=== PATIENT | female | born 1955 | race Caucasian/White ===

== ENCOUNTER 2024-12-20 00:12 | Inpatient (IN) | payer MEDICARE, MEDICAID ==
[~2024-12-20] VITALS: Ht 157.5 cm; Wt 67.0 kg
--- NOTE | 2024-12-20 04:58 | ED.PDOC ---
History of Present Illness HPI Comments 69 y/o obese F, with a history of DM, HLD, HTN, and GERD, is BIBA for c/o HTN, palpitations, dizziness, nausea, and vomiting, today. Per EMS reports, patient is stated to have been found hypertensive after, initially, calling for recent onset other aforementioned symptoms within the past few days. Patient states on recent metformin placement and cessation of her usual HTN medications for lisinopril following another ED visit at another facility 2-3 days ago. She denies any chest or abdominal pain, shortness of breath, vision or speech changes, headache, or other associated symptoms or modifiers at this time. Chief Complaint: Nausea/Vomiting Time Seen by MD: 01:10 Reviewed Notes: Nurses Notes, Administrative Supervisor Notes, Medications, Allergies Allergies: Coded Allergies: NO KNOWN ALLERGIES (Unverified , 12/20/24) Home Meds Active Scripts Lisinopril (Lisinopril) 10 Mg Tab, 20 MG PO DAILY for 30 Days, #30 TAB 0 Refills Prov:LATA SANCHEZ MD 12/23/24 Reported Medications Hydroxyzine Hcl (Hydroxyzine Hcl) 25 Mg Tab, 1 TAB PO HS, #30 TAB 12/20/24 Omeprazole (Omeprazole Dr) 20 Mg Cap, 20 MG PO DAILY, CAP 12/20/24 Metformin Hydrochloride (Metformin Hcl) 500 Mg Tab, 1 TAB PO BID, #60 TAB 3 Refills 12/20/24 Information Source: Patient, Emergency Med Personnel Mode of Arrival: EMS Severity: Moderate Timing: Days Duration: Since onset Prehospital treatment: 12 Lead EKG, Accucheck, Dietitian Chief Past Medical History PAST MEDICAL HISTORY: DM, GERD, High Lipids, HTN Past Medical History (Other): obesity Surgical History: Denies all surgeries VALVE SEATER OPERATOR History: Denies all VALVE SEATER OPERATOR Hx Family History Family History: Unknown Social History Smoker: Non-Smoker Alcohol: Denies ETOH Use Drugs: Denies Drug Use Lives In: Home All Other Systems: Reviewed and Negative (Comprehensive systems review obtained and negative except for what is stated in the HPI.) Physical Exam General Appearance: No Apparent Distress, Obese HEENT: Normal ENT Inspection, Pharynx Normal, TMs Normal Neck: Full Range of Motion, Non-Tender, Normal, Normal Inspection Respiratory: Chest Non-Tender, Lungs Clear, No Accessory Muscle Use, No Respiratory Distress, Normal Breath Sounds Cardiovascular: No Edema, No JVD, No Murmur, No Gallop, Normal Peripheral Pulses, Regular Rate/Rhythm Breast Exam: Deferred Gastrointestinal: No Organomegaly, Non Tender, No Pulsatile Mass, Normal Bowel Sounds, Soft Genitalia: Deferred Pelvic: Deferred Rectal: Deferred Extremities: No calf tenderness, Normal capillary refill, Normal inspection, Normal range of motion, Non-tender, No pedal edema Musculoskeletal : Apperance: Normal Neurologic: Alert, bag maker II-XII nml as Tested, No Motor Deficits, Normal Affect, Normal Mood, No Sensory Deficits Cerebellar Function: Normal Reflexes: Normal Skin: Dry, Normal Color, Warm Lymphatic: No Adenopathy Was a procedure done? Was a procedure done?: No Differential Dx Considerations may include: HTN emergency, inappropriate medication, inappropriate medication dosage, vertigo, electrolyte imbalance, dehydration, among others X-Ray, Labs, Meds, VS Vital Signs Date Time Temp Pulse Resp B/P (MAP) Pulse Ox O2 Delivery O2 Flow Rate FiO2 12/20/24 11:34 98.2 78 20 134/71 (92) 94 98.2 12/20/24 11:15 98.2 78 20 134/71 (92) 94 98.2 12/20/24 09:16 81 16 97 Room Air* 0 21 12/20/24 09:03 97.9 75 16 145/89 (107) 96 97.9 12/20/24 06:20 82 14 96 Room Air 12/20/24 06:20 98.8 82 14 157/84 (108) 96 98.8 12/20/24 04:17 98.8 91 16 156/76 (102) 96 98.8 12/20/24 03:58 98.6 87 16 202/87 (125) 98 98.6 Lab Test 12/20/24 07:18 12/20/24 06:55 12/20/24 05:37 Range/Units Urine Color Light-yellow Yellow Urine Clarity Clear Clear Urine pH 5.0 5.0-9.0 Urine Specific [place] 1.016 1.001-1.035 Urine Protein Negative Negative Urine Ketones Negative Negative Urine Blood Negative Negative /uL Urine Nitrite Negative Negative Urine Bilirubin Negative Negative Urine Urobilinogen Normal Negative mg/dL Urine Leukocyte Esterase Negative Negative /uL Urine RBC <1 0 - 4 /hpf Urine Microscopic WBC 1 0-5 /HPF Urine Squamous Epithelial Cells Few <5 /hpf Urine Bacteria Few H None Seen /hpf Urine Mucus Few None Seen Urine Glucose Normal Normal mg/dL Troponin I High Sensitivity 5 5 </=34 ng/L White Blood Count 9.9 4.4-10.8 10^3/uL Red Blood Count 3.97 L 4.0-5.20 10^6/uL Hemoglobin 9.3 L 12.2-16.2 g/dL Hematocrit 28.8 L 36.0-46.0 % Mean Corpuscular Volume 72.6 L 80.0-100.0 fL Mean Corpuscular Hemoglobin 23.5 L 28.0-32.0 pg Mean Corpuscular Hemoglobin Concent 32.4 32.0-36.0 g/dL Red Cell Distribution Width 16.7 H 11.8-14.3 % Platelet Count 379 140-450 10^3/uL Mean Platelet Volume 8.3 6.9-10.8 fL Neutrophils (%) (Auto) 74.7 37.0-80.0 % Lymphocytes (%) (Auto) 19.6 10.0-50.0 % Monocytes (%) (Auto) 4.5 0.0-12.0 % Eosinophils (%) (Auto) 0.2 0.0-7.0 % Basophils (%) (Auto) 1.0 0.0-2.0 % Neutrophils # (Auto) 7.4 1.6-8.6 10 ^3/uL Lymphocytes # (Auto) 1.9 0.4-5.4 10 ^3/uL Monocytes # (Auto) 0.4 0-1.3 10 ^3/uL Eosinophils # (Auto) 0 0-0.8 10 ^3/uL Basophils # (Auto) 0.1 0-0.2 10 ^3/uL Nucleated Red Blood Cells 0.1 % Sodium Level 136 136-145 mmol/L Potassium Level 4.7 3.5-5.1 mmol/L Chloride Level 103 98-107 mmol/L Carbon Dioxide Level 26 20-31 mmol/L Anion Gap 7 5-15 Blood Urea Nitrogen 23 9-23 mg/dL Creatinine 1.10 H 0.550-1.02 mg/dL Glomerular Filtration Rate Calc 54 >90 mL/min BUN/Creatinine Ratio 20.9 H 10.0-20.0 Serum Glucose 113 H 74-106 mg/dL Hemoglobin A1c 6.1 H <5.7 % A1C Calcium Level 9.9 8.7-10.4 mg/dL Magnesium Level 2.0 1.6-2.6 mg/dL Triglycerides Level 90 < 150 mg/dL Cholesterol Level 187 < 200 mg/dL LDL Cholesterol 117 H < 100 mg/dL HDL Cholesterol 61 H 40-59 mg/dL Thyroid Stimulating Hormone (TSH) 3.31 0.55-4.78 uIU/mL Time of 1ST Reevaluation: 01:40 Reevaluation 1ST: Unchanged Patient Education/Counseling: Diagnosis, Treatment Family Education/Counseling: No Family Present Additional Information Previous visit documents reviewed: n/a The following tests were ordered, and results were reviewed by me: troponin, CXR, UA, CBC, BMP Additional Information was gathered from interviewing the following independent historians: EMS I reviewed and agreed with the following test results read by other providers: CXR I discussed treatment and results with medical personnel and: Patient Departure 1 Departure Time of Disposition: 19:09 (Patient presented with hypertension and symptoms concerning for hypertensive emergency. Patient is receiving iv blood pressure medications requiring intensive monitoring. Data: 1. I ordered and reviewed the result of at least 3 labs including a CBC, BMP, and Urinalysis. 2. I independen tly interpreted the following tests: CT Brain: Which appears benign. EKG which is Normal Sinus RhythmRisk:This patient has a high risk of morbidity due to further diagnostic testing or treatment and may suffer from an acute cardiac disorder. Workup reveals hypertensive emergency and patient should be admitted for further workup. and possible expert consultation. ) Impression: Primary Impression: Hypertensive urgency Additional Impression: Acute chest pain Disposition: 09 ADMITTED INPATIENT Admit to: Med Surg Condition: Serious e-Prescriptions Lisinopril (Lisinopril) 10 Mg Tab 20 MG PO DAILY for 30 Days, #30 TAB 0 Refills Prov: LATA SANCHEZ MD 12/23/24 Critical Care Note Critical Care Time?: Yes Critical care comment: Hypertensive urgency Authorized and Performed by: Remington Santamaria MD Total critical care time: Approximately 38 minutes Due to a high probability of clinically significant, life threatening d eterioration, the patient required my highest level of preparedness to intervene emergently and I personally spent this critical care time directly and personally managing the patient. This critical care time included obtaining a history; examining the patient; pulse oximetry; ordering and review of studies; arranging urgent treatment with development of a management plan; evaluation of patient's response to treatment; frequent reassessment; and, discussions with other providers. This critical care time was performed to assess and manage the high probability of imminent, life-threatening deterioration that could result in multi-organ failure. It was exclusive of separately billable procedures and treating other patients and teaching time. Please see my other sections and the rest of the note for further information on patient assessment and treatment. Stability Stability form required: No Heart Score Heart Score: Heart Score Response (Comments) Value History N/A 0 EKG N/A 0 Age N/A 0 Risk Factors N/A 0 Troponin N/A 0 Total 0 I personally scribed for REMINGTON SANTAMARIA MD ([email or web address]) on 12/20/24 at 04:58. Electronically submitted by Donovan Benitez ([email or web address]). REMINGTON SANTAMARIA MD Dec 20, 2024 04:58
--- NOTE | 2024-12-20 05:40 | DVH ---
CHEST RADIOGRAPH Indication: palpitations Technique: Single frontal view of the chest was obtained COMPARISON: None FINDINGS: Lines and Tubes: None Lungs: Clear Pleura: No effusion. No pneumothorax. Cardiomediastinal contours: Moderate to large hiatal hernia. Bones: Unremarkable IMPRESSION: Moderate to large hiatal hernia.
[2024-12-20] MEDS: SODIUM CHLORIDE 0.9% 1,000 ML IV ONE (06:09)
[2024-12-20 06:19] LABS: Basophils # (auto) 0.1 10 ^3/uL (0-0.2); Eosinophils # (auto) 0 10 ^3/uL (0-0.8); Eosinophils % (auto) 0.2 % (0.0-7.0); Lymphocytes # (auto) 1.9 10 ^3/uL (0.4-5.4); Nucleated Red Blood Cells % 0.1 %; Red Cell Distribution Width 16.7 % (11.8-14.3)
[2024-12-20 06:22] LABS: Hematocrit 28.8 % (36.0-46.0); Hemoglobin 9.3 g/dL (12.2-16.2); Lymphocytes % (auto) 19.6 % (10.0-50.0); Mean Corpuscular Hemoglobin 23.5 pg (28.0-32.0); Mean Corpuscular Hgb Conc. 32.4 g/dL (32.0-36.0); Mean Corpuscular Volume 72.6 fL (80.0-100.0); Monocytes # (auto) 0.4 10 ^3/uL (0-1.3); Monocytes % (auto) 4.5 % (0.0-12.0); Neutrophils # (auto) 7.4 10 ^3/uL (1.6-8.6); Neutrophils % (auto) 74.7 % (37.0-80.0); Platelet Count (auto) 379 10^3/uL (140-450); Red Blood Cells 3.97 10^6/uL (4.0-5.20); White Blood Cell 9.9 10^3/uL (4.4-10.8)
[2024-12-20] MEDS: ONDANSETRON HCL 4 MG/2 ML VIAL IV ONE (06:22)
[2024-12-20] MEDS: FAMOTIDINE (10MG/ML) 2ML VL IV ONE (06:22)
[2024-12-20 06:28] LABS: Anion Gap 7 (5-15); Carbon Dioxide 26 mmol/L (20-31); Chloride 103 mmol/L (98-107); Potassium 4.7 mmol/L (3.5-5.1); Sodium 136 mmol/L (136-145)
[2024-12-20 06:29] LABS: Calcium 9.9 mg/dL (8.7-10.4)
[2024-12-20 06:34] LABS: BUN/Creatinine Ratio 20.9 (10.0-20.0)
[2024-12-20 06:36] LABS: Blood Urea Nitrogen 23 mg/dL (9-23); Glucose 113 mg/dL (74-106)
[2024-12-20 08:13] LABS: Urine Bacteria FEW /hpf (None Seen); Urine Blood Negative /uL (Negative); Urine Clarity Clear (Clear); Urine Color Light-Yellow (Yellow); Urine Mucus FEW (None Seen); Urine Protein, UAD Negative (Negative); Urine Specific Gravity 1.016 (1.001-1.035); Urine Squamous Epithelial Cell FEW /hpf (<5); Urine Urobilinogen Normal (Negative); Urine WBC 1 /HPF (0-5)
[2024-12-20 09:16] VITALS: PULSE 81; RESP 16; O2SAT 97
[2024-12-20] MEDS ORDERED: LISI10TA34 PO (13:11)
[2024-12-20] MEDS ORDERED: HYDR-3682 PO (13:11)
[2024-12-20] MEDS ORDERED: OMEP1CAP70 PO (13:11)
[2024-12-20] MEDS ORDERED: METF-370 PO (13:11)
[2024-12-20] MEDS ORDERED: DOCUSATE SOD 100 MG CAP PO PRN (13:15)
[2024-12-20] MEDS ORDERED: ACCU-CHEK COMFORT CURVE STRIP VI ONE (13:15)
[2024-12-20] MEDS ORDERED: ONDANSETRON HCL 4 MG/2 ML VIAL IV PRN (13:15)
[2024-12-20] MEDS ORDERED: ACETAMINOPHEN 325 MG TAB PO PRN (13:15)
[2024-12-20] MEDS ORDERED: MORPHINE SULFATE INJ 2 MG/ml SYRG IV PRN (13:15)
[2024-12-20] MEDS ORDERED: NITROGLYCERIN 0.4 MG SL TAB SL PRN (13:15)
[2024-12-20] MEDS ORDERED: DEXTROSE (50%) 50ML SYRG IV ONE (13:15)
[2024-12-20] MEDS ORDERED: InsuLIN REG 1unit/0.01ml Soln (100units/ml) SC ONE (13:15)
--- NOTE | 2024-12-20 13:21 | DVHHP2 ---
History of Present Illness Reason for Visit: Nausea, vomiting, chest pain History of Present Illness Delisa Ponce is a 69-year-old female with past medical history of hypertension, GERD, diabetes, anxiety, and insomnia, who came in for chest pain, nausea, and vomiting. Patient states that her blood pressure became elevated last night and that she vomited last night. She states that her blood pressure remained elevated this morning. She came to the ER for the elevated blood pressure, and chest pain. While in the ER she did have an episode of nausea and vomiting. Patient states that she has recently seen a new physician and her medications were changed. Cardiovascular: HTN GI: GERD Psych: Anxiety, Other (Insomnia) Endocrine: Diabetes Past Surgical History: Cholecystectomy, Other (right eye) Smoke: Quit (1999) ALCOHOL: rare Drugs: None Lives: Roommate Domestic Violence: Neg Review of Systems Constitutional: No: Fever, Chills, Sweats, Weakness, Malaise, Other Eyes: No: Pain, Vision change, Conjunctivae inflammation, Eyelid inflammation, Other, Redness ENT: No: Ear pain, Ear discharge, Nose pain, Nose discharge, Nose congestion, Mouth pain, Mouth swelling, Throat pain, Throat swelling, Other Respiratory: No: Cough, Dry, Shortness of breath, SOB with excertion, Wheezing, Hemoptysis, Pleuritic Pain, Sputum, Wheezing, Other Cardiovascular: Chest Pain; No: Palpitations, Orthopnea, Paroxysmal Noc. Dyspnea, Edema, Lt Headedness, Other Gastrointestinal: Nausea, Vomiting; No: Abdominal Pain, Diarrhea, Constipation, Melena, Hematochezia, Other Genitourinary: No Dysuria, No Frequency, No Incontinence, No Hematuria, No Retention, No Other Musculoskeletal: No: other, neck pain, shoulder pain, arm pain, back pain, hand pain, leg pain, foot pain Skin: No: Rash, Lesions, Jaundice, Bruising, Other Neurological: No: Weakness, Numbness, Incoordination, Change in speech, Confusion, Seizures, Other Allergies: Coded Allergies: NO KNOWN ALLERGIES (Unverified , 12/20/24) Medications Current Medications Medications Dose Ordered Sig/Paul Route Start Time Stop Time Status Last Admin Dose Admin Sodium Chloride 10 ml Q8HR IV 12/20/24 14:00 UNV Acetaminophen/ Hydrocodone Bitart 1 tab Q4HP PRN PO 12/20/24 13:15 UNV Ondansetron HCl 4 mg Q4HP PRN IV 12/20/24 13:15 UNV Docusate Sodium 100 mg BIDPRN PRN PO 12/20/24 13:15 UNV Acetaminophen 650 mg Q6HP PRN PO 12/20/24 13:15 UNV Nitroglycerin 0.4 mg Q5MINP PRN SL 12/20/24 13:15 UNV Morphine Sulfate 2 mg Q30M PRN IV 12/20/24 13:15 UNV Exam Vital Signs Vital Signs Date Time Temp Pulse Resp B/P (MAP) Pulse Ox O2 Delivery O2 Flow Rate FiO2 12/20/24 11:34 98.2 78 20 134/71 (92) 94 98.2 12/20/24 09:16 Room Air* 0 21 General Appearance: Alert, Oriented X3, Cooperative, mild distress HEENT: Atraumatic, PERRLA, Mucous membr. moist/pink Respiratory: Clear to auscultation, Normal air movement Cardiovascular: Regular rate, Normal S1, Normal S2, No murmurs Abdominal: Normal bowel sounds, Soft, No tenderness, No hepatospenomegaly Extremities: No clubbing, No cyanosis, No edema, Normal pulses Skin: No rashes, No breakdown, No significant lesion Neuro: Normal gait, Normal speech, Strength at 5/5 X4 ext Psych/Mental Status: Mental status NL, Mood NL Labs/Xrays Labs Test 12/20/24 07:18 12/20/24 06:55 12/20/24 05:37 Range/Units Urine Color Light-yellow Yellow Urine Clarity Clear Clear Urine pH 5.0 5.0-9.0 Urine Specific [place] 1.016 1.001-1.035 Urine Protein Negative Negative Urine Ketones Negative Negative Urine Blood Negative Negative /uL Urine Nitrite Negative Negative Urine Bilirubin Negative Negative Urine Urobilinogen Normal Negative mg/dL Urine Leukocyte Esterase Negative Negative /uL Urine RBC <1 0 - 4 /hpf Urine Microscopic WBC 1 0-5 /HPF Urine Squamous Epithelial Cells Few <5 /hpf Urine Bacteria Few H None Seen /hpf Urine Mucus Few None Seen Urine Glucose Normal Normal mg/dL Troponin I High Sensitivity 5 </=34 ng/L White Blood Count 9.9 4.4-10.8 10^3/uL Red Blood Count 3.97 L 4.0-5.20 10^6/uL Hemoglobin 9.3 L 12.2-16.2 g/dL Hematocrit 28.8 L 36.0-46.0 % Mean Corpuscular Volume 72.6 L 80.0-100.0 fL Mean Corpuscular Hemoglobin 23.5 L 28.0-32.0 pg Mean Corpuscular Hemoglobin Concent 32.4 32.0-36.0 g/dL Red Cell Distribution Width 16.7 H 11.8-14.3 % Platelet Count 379 140-450 10^3/uL Mean Platelet Volume 8.3 6.9-10.8 fL Neutrophils (%) (Auto) 74.7 37.0-80.0 % Lymphocytes (%) (Auto) 19.6 10.0-50.0 % Monocytes (%) (Auto) 4.5 0.0-12.0 % Eosinophils (%) (Auto) 0.2 0.0-7.0 % Basophils (%) (Auto) 1.0 0.0-2.0 % Neutrophils # (Auto) 7.4 1.6-8.6 10 ^3/uL Lymphocytes # (Auto) 1.9 0.4-5.4 10 ^3/uL Monocytes # (Auto) 0.4 0-1.3 10 ^3/uL Eosinophils # (Auto) 0 0-0.8 10 ^3/uL Basophils # (Auto) 0.1 0-0.2 10 ^3/uL Nucleated Red Blood Cells 0.1 % Sodium Level 136 136-145 mmol/L Potassium Level 4.7 3.5-5.1 mmol/L Chloride Level 103 98-107 mmol/L Carbon Dioxide Level 26 20-31 mmol/L Anion Gap 7 5-15 Blood Urea Nitrogen 23 9-23 mg/dL Creatinine 1.10 H 0.550-1.02 mg/dL Glomerular Filtration Rate Calc 54 >90 mL/min BUN/Creatinine Ratio 20.9 H 10.0-20.0 Serum Glucose 113 H 74-106 mg/dL Calcium Level 9.9 8.7-10.4 mg/dL CHEST RADIOGRAPH FINDINGS: Lines and Tubes: None Lungs: Clear Pleura: No effusion. No pneumothorax. Cardiomediastinal contours: Moderate to large hiatal hernia. Bones: Unremarkable IMPRESSION: Moderate to large hiatal hernia. Assessment/Plan Assessment/Plan Assessment: Hypertensive urgency, Diabetes, Anxiety, Insomnia, Plan: Admit to Tele, Cardiology consult, Antihypertensive medication, Accu checks Q AC&HS with sliding scale, Home medications reconciled, Plan discussed with: Patient My Orders Orders - ARLET CLARK Procedure Category Date Status Time Admit ADMIT 12/20/24 Transmitted 13:07 Code Status CODE 12/20/24 Transmitted 13:07 2 Gm Sodium Diet DIET 12/20/24 Transmitted Lunch Sodium Chloride Lock PHA 12/20/24 Logged (Saline Lock Ns) 14:00 Hydrocodone-Acet PHA 12/20/24 Logged 5/325mg Tab ([place] 13:15 Ondansetron Hcl PHA 12/20/24 Logged (Zofran) 13:15 Docusate Sodium PHA 12/20/24 Logged Capsule (Colace 13:15 Complete Blood Count LAB 12/21/24 Verified 04:00 Comprehensive LAB 12/21/24 Verified Metabolic Panel 04:00 Condition: Serious NARCISO 12/20/24 In Process 13:07 Acetaminophen Tablet PHA 12/20/24 Logged (Tylenol Tablet) 13:15 Nitroglycerin PHA 12/20/24 Logged Sublingual (Ntrostat 13:15 Morphine Sulfate PHA 12/20/24 Logged Injection 13:15 Stat Ekg For Chest NARCISO 12/20/24 In Process Pain 13:07 Notify Of Changes NARCISO 12/20/24 In Process From Base 13:07 Electrical Fitter For NARCISO 12/20/24 In Process 24 Hours 13:07 Emergency Dysrhythmia NARCISO 12/20/24 In Process Protocol 13:07 Rhythm Strips Once NARCISO 12/20/24 In Process Every Shift 13:07 Oxygen By Nasal RT 12/20/24 Transmitted Cannula 13:07 Glucose Blood PHA 12/20/24 Transmitted (Accu-Chek Comfort 17:00 Glucose Blood PHA 12/20/24 Transmitted (Accu-Chek Comfort 13:15 Mild Insulin Ss Achs PHA 12/20/24 Transmitted 13:15 Dextrose 50% Syringe PHA 12/20/24 Transmitted 13:15 * Cardiology Consult CONS 12/20/24 Transmitted 13:11 (Nf) Hydroxyzine Hcl PHA 12/20/24 Transmitted 22:00 (Nf) Lisinopril PHA 12/21/24 Transmitted 10:00 (Nf) Omeprazole PHA 3/27/25 Transmitted (Omeprazole Dr) 10:00 Date of Service: Dec 20, 2024 Billing Provider: ARLET CLARK Common Visit Codes: 39077-[id number] INP/OBS CARE (MOD) ARLET CLARK Dec 20, 2024 13:21
[2024-12-20] MEDS: LISINOPRIL 5 MG TAB PO ONE (13:46)
[2024-12-20] MEDS: SODIUM CHLOR 0.9% PF (SALINE LOCK) 10ML VIAL/SYR IV SCH (13:47)
[2024-12-20] MEDS ORDERED: DEXTROSE (50%) 50ML SYRG IV PRN (14:45)
[2024-12-20 17:00] VITALS: BP 154/62; PULSE 68; PULSE 69; RESP 18; TEMP 98.4; O2SAT 96
[2024-12-20] MEDS: InsuLIN REG 1unit/0.01ml Soln (100units/ml) SC SCH (17:00)
[2024-12-20] MEDS: ACCU-CHEK COMFORT CURVE STRIP VI SCH (17:00)
[2024-12-20] MEDS ORDERED: ACCU-CHEK COMFORT CURVE STRIP VI SCH (17:00)
[2024-12-20 17:13] VITALS: BP 154/62; PULSE 68; RESP 18; TEMP 98.4; O2SAT 96
--- NOTE | 2024-12-20 17:59 | DVHINCON2 ---
Date Seen: Dec 20, 2024 Referring Physician SOCORRO Magana Reason for Consultation Hypertensive emergency History of Present Illness This is a pleasant 69-year-old female who presented to emergency room with a chief complaint of uncontrolled blood pressure. The patient reports she found her blood pressure to be 204/109 mmHg with associated transient palpitations prompting her to seek further medical attention. She believes she has experienced hypoglycemic events since she started metformin therapy two days ago therefore causing a rise on her blood pressure. States she transitioned recently from Norvasc to lisinopril 10 mg qd. Serial troponin levels are negative. There was no 12 lead electrocardiogram on file. Significant medical history includes hypertension, [id number] diabetes mellitus, pulmonary fibrosis, GERD, hx of tobacco use including a smoking exposure x 30 pack-years, alcohol use, and obesity. Past Medical History Past medical history reviewed. No other significant than mentioned above. Past Surgical History Cholecystectomy, 2004 OD retinal detachment, 2009 Family History Family history reviewed. Social History Admits to alcohol use every other day. Quit smoking tobacco in 2007. Denies any use of illicit drugs. Allergies: Coded Allergies: NO KNOWN ALLERGIES (Unverified , 12/20/24) Home Meds Reported Medications Hydroxyzine Hcl (Hydroxyzine Hcl) 25 Mg Tab, 1 TAB PO HS, #30 TAB 12/20/24 Omeprazole (Omeprazole Dr) 20 Mg Cap, 20 MG PO DAILY, CAP 12/20/24 Metformin Hydrochloride (Metformin Hcl) 500 Mg Tab, 1 TAB PO BID, #60 TAB 3 Refills 12/20/24 Lisinopril (Lisinopril) 10 Mg Tab, 10 MG PO DAILY, TAB 12/20/24 Current Medications Current Medications Medications (Trade) Dose Ordered Sig/Paul Route PRN Reason Start Time Stop Time Status Last Admin Sodium Chloride (Saline Lock Ns) 10 ml Q8HR IV 12/20/24 14:00 12/20/24 13:47 Acetaminophen/ Hydrocodone Bitart ([place] 5/325MG Tab) 1 tab Q4HP PRN PO MODERATE PAIN (4-6 PAIN SCALE) 12/20/24 13:15 Ondansetron HCl (Zofran) 4 mg Q4HP PRN IV NAUSEA / VOMITING 12/20/24 13:15 Docusate Sodium (Colace Capsule) 100 mg BIDPRN PRN PO FOR CONSTIPATION 12/20/24 13:15 Acetaminophen (Tylenol Tablet) 650 mg Q6HP PRN PO PAIN SCALE 1-3 OR TEMP>100.4 12/20/24 13:15 Nitroglycerin (Ntrostat Sublingual) 0.4 mg Q5MINP PRN SL FOR CHEST PAIN 12/20/24 13:15 Morphine Sulfate 2 mg Q30M PRN IV FOR CHEST PAIN 12/20/24 13:15 Diagnostic Test (Pha) (Accu-Chek Comfort Curve T) 1 strip ACHS 12/20/24 17:00 12/20/24 14:35 DC Hydroxyzine Pamoate (Vistaril Oral) 25 mg HS PO 12/20/24 22:00 Lisinopril (Zestril Tablet) 10 mg DAILY PO 12/21/24 10:00 Patient Own Medication 20 mg DAILY PO 12/21/24 10:00 Diagnostic Test (Pha) (Accu-Chek Comfort Curve T) 1 strip ACHS 12/20/24 17:00 12/20/24 17:00 Insulin Human Regular (InsuLIN R) ACHS SC 12/20/24 17:00 Dextrose 50 ml UD PRN IV Blood Sugar LESS THAN 60 12/20/24 14:45 Review of Systems Constitutional: No symptom reported Ears, Nose, & Throat: No symptom reported Eyes: No symptom reported Neurological: No symptoms reported Pulmonary/Respiratory: No symptom reported Cardiovascular: Palpitations, uncontrolled BP Gastrointestinal: No symptom reported Genitourinary: No symptom reported Musculoskeletal: No symptom reported Skin: No symptom reported Psychiatric: No symptom reported Endocrine: No symptom reported Hemotologic/Lymphatic: No symptom reported Vital Signs Vital Signs Date Time Temp Pulse Resp B/P (MAP) Pulse Ox O2 Delivery O2 Flow Rate FiO2 12/20/24 16:25 98.6 76 18 126/88 (101) 96 98.6 12/20/24 09:16 Room Air* 0 21 Physical Exam General Appearance: Cooperative. Well developed. Obese. In no acute distress Head Exam: Normal inspection Neck Exam: Normal inspection. Non-tender. Normal alignment Pulmonary/Respiratory: Chest non-tender. Expiratory wheezing bilateral breath sounds Cardiovascular/Chest: Regular rate and rhythm. S1, S2. Sinus rhythm. No murmurs. No JVD. Peripheral Pulses: 2+ Radial (R). 2+ Radial (L). 2+ Pedal (R). 2+ Pedal (L) Abdominal Exam: Normal bowel sounds. Soft. Ankle Exam: Negative ankle edema Lower extremities: Negative lower extremity edema Neuro/Mental Status: A&O x4. Coherent Thoughts/Psych: Normal thought pattern. Appropriate mood and affect. Good judgement and insight Appearance: In no acute distress Skin Exam: Normal inspection. Normal color. Warm. Dry Labs/Diagnostic Data Labs Test 12/20/24 07:18 12/20/24 06:55 12/20/24 05:37 Range/Units Urine Color Light-yellow Yellow Urine Clarity Clear Clear Urine pH 5.0 5.0-9.0 Urine Specific [place] 1.016 1.001-1.035 Urine Protein Negative Negative Urine Ketones Negative Negative Urine Blood Negative Negative /uL Urine Nitrite Negative Negative Urine Bilirubin Negative Negative Urine Urobilinogen Normal Negative mg/dL Urine Leukocyte Esterase Negative Negative /uL Urine RBC <1 0 - 4 /hpf Urine Microscopic WBC 1 0-5 /HPF Urine Squamous Epithelial Cells Few <5 /hpf Urine Bacteria Few H None Seen /hpf Urine Mucus Few None Seen Urine Glucose Normal Normal mg/dL Troponin I High Sensitivity 5 </=34 ng/L White Blood Count 9.9 4.4-10.8 10^3/uL Red Blood Count 3.97 L 4.0-5.20 10^6/uL Hemoglobin 9.3 L 12.2-16.2 g/dL Hematocrit 28.8 L 36.0-46.0 % Mean Corpuscular Volume 72.6 L 80.0-100.0 fL Mean Corpuscular Hemoglobin 23.5 L 28.0-32.0 pg Mean Corpuscular Hemoglobin Concent 32.4 32.0-36.0 g/dL Red Cell Distribution Width 16.7 H 11.8-14.3 % Platelet Count 379 140-450 10^3/uL Mean Platelet Volume 8.3 6.9-10.8 fL Neutrophils (%) (Auto) 74.7 37.0-80.0 % Lymphocytes (%) (Auto) 19.6 10.0-50.0 % Monocytes (%) (Auto) 4.5 0.0-12.0 % Eosinophils (%) (Auto) 0.2 0.0-7.0 % Basophils (%) (Auto) 1.0 0.0-2.0 % Neutrophils # (Auto) 7.4 1.6-8.6 10 ^3/uL Lymphocytes # (Auto) 1.9 0.4-5.4 10 ^3/uL Monocytes # (Auto) 0.4 0-1.3 10 ^3/uL Eosinophils # (Auto) 0 0-0.8 10 ^3/uL Basophils # (Auto) 0.1 0-0.2 10 ^3/uL Nucleated Red Blood Cells 0.1 % Sodium Level 136 136-145 mmol/L Potassium Level 4.7 3.5-5.1 mmol/L Chloride Level 103 98-107 mmol/L Carbon Dioxide Level 26 20-31 mmol/L Anion Gap 7 5-15 Blood Urea Nitrogen 23 9-23 mg/dL Creatinine 1.10 H 0.550-1.02 mg/dL Glomerular Filtration Rate Calc 54 >90 mL/min BUN/Creatinine Ratio 20.9 H 10.0-20.0 Serum Glucose 113 H 74-106 mg/dL Calcium Level 9.9 8.7-10.4 mg/dL Assessment Accelerated hypertension Rule out renal artery stenosis Rule out structural heart disease Pulmonary fibrosis Large hiatal hernia Insulin-dependent diabetes mellitus Hx tobacco use Obesity Plan/Recommendation (Dr. Cortez) Scheduled for a transthoracic echocardiogram to rule out structural heart disease as well as a renal artery ultrasound to rule out stenosis. In the meantime, continue blood pressure control for a systolic blood pressure <140 mmHg. Monitor ECG changes and notify given complains of palpitations. Obtain a baseline twelve-lead electrocardiogram. Thank you for allowing us to participate in this patient's care. Please call if you have any questions or concerns. This medical document was created using an electronic medical record system with voice recognition software and computerized dictation system. Although this document has been carefully reviewed, there might still be some phonetic and typographical errors. Occasional wrong-word or ``sound-alike substitutions may have occurred due to the inherent limitations of voice recognition software. These areas are purely typographical due to imperfections of the software programs and do not reflect any compromise in the patient's medical care. Please read the chart carefully and recognize, using context, where these substitutions have occurred. Plan discussed with: Patient, Other NYHA Physical activity limitations: NA Date of Service: Dec 20, 2024 Billing Provider: KEKE FORDE [employer] Cardiology Common Codes: [id number] INP/OBS CARE (High) KEKE FORDE [facility] Dec 20, 2024 17:59
[2024-12-20] MEDS: hydrALAZINE HCL 20 MG/ML VL IV PRN (20:32)
[2024-12-20 21:32] VITALS: PULSE 78; RESP 17; O2SAT 96
[2024-12-20] MEDS: hydrOXYzine 25 MG TAB or CAP PO SCH (21:49)
[2024-12-21] VITALS (9 sets, daily range): BP systolic 118–169; BP diastolic 50–76; PULSE 57–80; RESP 18–22; TEMP 97.7–98.2; O2SAT 95–100
[2024-12-21] MEDS: HYDROcodone-ACET 5/325MG TAB PO PRN (00:31)
[2024-12-21] MEDS: PANTOPRAZOLE 40 MG TAB PO SCH (05:12)
[2024-12-21 05:58] LABS: Basophils # (auto) 0.1 10 ^3/uL (0-0.2); Basophils % (auto) 1.1 % (0.0-2.0); Eosinophils # (auto) 0.1 10 ^3/uL (0-0.8); Eosinophils % (auto) 1.4 % (0.0-7.0); Hemoglobin 8.3 g/dL (12.2-16.2); Lymphocytes # (auto) 1.9 10 ^3/uL (0.4-5.4); Lymphocytes % (auto) 34.2 % (10.0-50.0); Mean Corpuscular Hemoglobin 23.5 pg (28.0-32.0); Mean Corpuscular Hgb Conc. 31.7 g/dL (32.0-36.0); Mean Corpuscular Volume 74.1 fL (80.0-100.0); Monocytes # (auto) 0.5 10 ^3/uL (0-1.3); Monocytes % (auto) 8.7 % (0.0-12.0); Neutrophils # (auto) 3.1 10 ^3/uL (1.6-8.6); Neutrophils % (auto) 54.6 % (37.0-80.0); Platelet Count (auto) 287 10^3/uL (140-450); Red Blood Cells 3.51 10^6/uL (4.0-5.20); Red Cell Distribution Width 16.6 % (11.8-14.3); White Blood Cell 5.6 10^3/uL (4.4-10.8)
[2024-12-21 06:11] LABS: Alanine Aminotransferase 20 U/L (7-40); Albumin 3.8 g/dL (3.2-4.8); Alkaline Phosphatase 54 U/L (46-116); Anion Gap 7 (5-15); Aspartate Aminotransferase 20 U/L (13-40); BUN/Creatinine Ratio 19.6 (10.0-20.0); Blood Urea Nitrogen 19 mg/dL (9-23); Calcium 9.2 mg/dL (8.7-10.4); Carbon Dioxide 27 mmol/L (20-31); Glucose 94 mg/dL (74-106); Potassium 4.6 mmol/L (3.5-5.1); Sodium 141 mmol/L (136-145); Total Protein 6.3 g/dL (5.7-8.2)
[2024-12-21 06:12] LABS: Bilirubin, Total 0.4 mg/dL (0.2-1.0)
[2024-12-21 06:18] LABS: Chloride 107 mmol/L (98-107)
[2024-12-21] MEDS: LISINOPRIL 5 MG TAB PO SCH (09:25)
--- NOTE | 2024-12-21 10:33 | DVHPN2 ---
Consult Progress Note Date Seen: Dec 21, 2024 Subjective Review of Systems: CVS:Normal, RESPIRATORY:Normal, NEURO:Normal Other Systems: Denies any cardiac symptoms Objective vital signs Vital Sign Date Time Temp Pulse Resp B/P (MAP) Pulse Ox O2 Delivery O2 Flow Rate FiO2 12/21/24 09:25 118/62 12/21/24 08:53 97.9 68 22 99 97.9 12/20/24 21:32 Room Air* 0 21 Total Intake and Output 12/20/24 12/20/24 12/21/24 15:00 23:00 07:00 Intake Total 0 ml Balance 0 ml medications Current Medications Medications Dose Ordered Sig/Paul Route Start Time Stop Time Status Last Admin Dose Admin Sodium Chloride 10 ml Q8HR IV 12/20/24 14:00 12/21/24 05:13 10 ML Acetaminophen/ Hydrocodone Bitart 1 tab Q4HP PRN PO 12/20/24 13:15 12/21/24 00:31 1 TAB Ondansetron HCl 4 mg Q4HP PRN IV 12/20/24 13:15 Docusate Sodium 100 mg BIDPRN PRN PO 12/20/24 13:15 Acetaminophen 650 mg Q6HP PRN PO 12/20/24 13:15 Nitroglycerin 0.4 mg Q5MINP PRN SL 12/20/24 13:15 Morphine Sulfate 2 mg Q30M PRN IV 12/20/24 13:15 Hydroxyzine Pamoate 25 mg HS PO 12/20/24 22:00 12/20/24 21:49 25 MG Lisinopril 10 mg DAILY PO 12/21/24 10:00 Diagnostic Test (Pha) 1 strip ACHS 12/20/24 17:00 12/21/24 07:00 1 STRIP Insulin Human Regular ACHS SC 12/20/24 17:00 Dextrose 50 ml UD PRN IV 12/20/24 14:45 Hydralazine HCl 10 mg Q6HP PRN IV 12/20/24 17:45 12/20/24 20:32 10 MG Pantoprazole Sodium 40 mg DAILY@0600 PO 12/21/24 06:00 Examination: GENERAL:Normal, LUNGS:Normal, CVS:Normal, NEURO:Normal laboratory and microbiology Laboratory Tests 12/21/24 05:05 Test 12/21/24 05:05 Range/Units Serum Glucose 94 74-106 mg/dL Problem List/Assessment/Plan Problem List/Assessment/Plan Accelerated hypertension Pulmonary fibrosis Large hiatal hernia Insulin-dependent diabetes mellitus Hx tobacco use Obesity Plan/Recommendation (Dr. Cortez) Transthoracic echocardiogram revealed EF 65% with normal RV function and left atrial enlargement. Renal artery ultrasound is negative for stenosis. Continue blood pressure control for a systolic blood pressure <140 mmHg. Monitor ECG changes and notify given complains of palpitations. Consider an outpatient event monitor if deemed necessary. There is no further cardiac work-up indicated at this time. Kindly call if in need to re-consult. Thank you for allowing us to participate in this patient's care. This medical document was created using an electronic medical record system with voice recognition software and computerized dictation system. Although this document has been carefully reviewed, there might still be some phonetic and typographical errors. Occasional wrong-word or ``sound-alike substitutions may have occurred due to the inherent limitations of voice recognition software. These areas are purely typographical due to imperfections of the software programs and do not reflect any compromise in the patient's medical care. Please read the chart carefully and recognize, using context, where these substitutions have occurred. Plan discussed with: Patient, Other Date of Service: Dec 21, 2024 Billing Provider: KEKE FORDE Cardiology Common Codes: [id number] HOSP CARE(High KEKE FORDE Dec 21, 2024 10:33
--- NOTE | 2024-12-21 11:55 | DVHPNRES ---
Progress Note Date Seen: Dec 21, 2024 Resident Creating Document: LUPE MOSLEY RESIDENT Medical Necessity Reason Pt with a Central, PICC or Fol: No Subjective Review of Systems Delisa Ponce is a 69-year-old female with past medical history of hypertension, GERD, diabetes, anxiety, and insomnia, who came in for chest pain, nausea, and vomiting. Patient states that her blood pressure became elevated 202/87 and that she vomited last night. She states that her blood pressure remained elevated this morning. She came to the ER for the elevated blood pressure, and chest pain. While in the ER she did have an episode of nausea and vomiting. Patient states that she has recently seen a new physician and her medications were changed. Patient was seen and examined on the bedside. she is alert, oriented x3. No overnight events, mentioned feeling better and no active complaint. Constitutional: No: Fever, Chills, Sweats, Weakness, Malaise, Other Eyes: No: Pain, Vision change, Conjunctivae inflammation, Eyelid inflammation, Other, Redness ENT: No: Ear pain, Ear discharge, Nose pain, Nose discharge, Nose congestion, Mouth pain, Mouth swelling, Throat pain, Throat swelling, Other Respiratory: Shortness of breath, improving No: Cough, Dry,Wheezing, Hemoptysis, Pleuritic Pain, Sputum, Wheezing, Other Cardiovascular: No: Chest Pain, Palpitations, Orthopnea, Paroxysmal Noc. Dyspnea, Edema, Lt Headedness, Other Gastrointestinal: Nausea, Vomiting, No Abdominal Pain, Diarrhea, Constipation, Melena, Hematochezia, Other Musculoskeletal: Neck pain No: other, shoulder pain, arm pain, back pain, hand pain, leg pain, foot pain Neurological:; No: Weakness, Numbness, Incoordination, Change in speech, Confusion, Seizures Objective vital signs Vital Sign Date Time Temp Pulse Resp B/P (MAP) Pulse Ox O2 Delivery O2 Flow Rate FiO2 12/21/24 09:25 118/62 12/21/24 08:53 97.9 68 22 99 97.9 12/20/24 21:32 Room Air* 0 21 Total Intake and Output 12/20/24 12/20/24 12/21/24 15:00 23:00 07:00 Intake Total 0 ml Balance 0 ml medications Current Medications Medications Dose Ordered Sig/Paul Route Start Time Stop Time Status Last Admin Dose Admin Sodium Chloride 10 ml Q8HR IV 12/20/24 14:00 12/21/24 05:13 10 ML Acetaminophen/ Hydrocodone Bitart 1 tab Q4HP PRN PO 12/20/24 13:15 12/21/24 00:31 1 TAB Ondansetron HCl 4 mg Q4HP PRN IV 12/20/24 13:15 Docusate Sodium 100 mg BIDPRN PRN PO 12/20/24 13:15 Acetaminophen 650 mg Q6HP PRN PO 12/20/24 13:15 Nitroglycerin 0.4 mg Q5MINP PRN SL 12/20/24 13:15 Morphine Sulfate 2 mg Q30M PRN IV 12/20/24 13:15 Hydroxyzine Pamoate 25 mg HS PO 12/20/24 22:00 12/20/24 21:49 25 MG Lisinopril 10 mg DAILY PO 12/21/24 10:00 Diagnostic Test (Pha) 1 strip ACHS 12/20/24 17:00 12/21/24 07:00 1 STRIP Insulin Human Regular ACHS SC 12/20/24 17:00 Dextrose 50 ml UD PRN IV 12/20/24 14:45 Hydralazine HCl 10 mg Q6HP PRN IV 12/20/24 17:45 12/20/24 20:32 10 MG Pantoprazole Sodium 40 mg DAILY@0600 PO 12/21/24 06:00 Examination Physical examination: General Appearance: Alert, Oriented X3, Cooperative, No acute distress HEENT: Atraumatic, PERRLA, EOMI, Mucous membrane moist/pink Respiratory: Clear to auscultation, Normal air movement Cardiovascular: Regular rate, Normal S1, Normal S2, No murmurs, no chest wall tenderness Abdominal: Normal bowel sounds, Soft, No tenderness, No hepatospenomegaly, No masses Extremities: No clubbing, No cyanosis, No edema, Normal pulses, No tenderness/swelling Skin: No rashes, No breakdown, No significant lesion Neuro: Normal speech, Strength at 5/5 X4 ext, Normal tone, Sensation intact, grossly intact cranial nerves. Psych/Mental Status: Mental status NL, Mood NL laboratory and microbiology Laboratory Tests 12/21/24 05:05 Test 12/21/24 05:05 Range/Units Serum Glucose 94 74-106 mg/dL Labs and/or images reviewed: Labs reviewed by me, Image(s) reviewed by me Problem List/Assessment/Plan Problem List/Assessment/Plan Assessment and plan: # Hypertensive urgency # Ruled out artery stenosis # Hypertensive heart disease with possible chronic diastolic heart failure - On admission blood pressure was 202/87 - IV hydralazine 10 mg q.6 p.r.n. - Lisinopril 10 mg p.o. daily - Arterial duplex was negative for renal artery stenosis - Echo revealed ejection fraction 65%, normal RV function and mild aortic stenosis. # GERD # Large hiatal hernia - Protonix 40 mg p.o. daily # Type 2 diabetes mellitus, hemoglobin A1c 6.1 - Mild sliding dose of insulin # DVT prophylaxis - Lovenox 40 mg sc daily Goal of care discussed with the patient for more than 20 minutes full code Plan discussed with Dr. Quiñones Plan discussed with: Patient, Other Date of Service: Dec 21, 2024 Billing Provider: LATA SANCHEZ MD Common Visit Codes: [id number] INP/OBS CARE(HIGH) LUPE MOSLEY RESIDENT Dec 21, 2024 11:55 LATA SANCHEZ MD Dec 27, 2024 23:29
--- NOTE | 2024-12-21 12:53 | DVH ---
INDICATION: Accelerated HTN rule out renal artery stenosis TECHNIQUE: Multiple real-time sonographic images of the kidneys and bladder were obtained. Duplex Doppler evaluation including color Doppler and spectral/pulsed waveform analysis of the bilate ral renal arteries was performed. COMPARISON: None FINDINGS: The right kidney measures 10.5 cm in length. The right renal echogenicity, contour and cortical thick ness are within normal limits. No hydronephrosis or large masses/calculi are seen. The left kidney measures 11.5 cm in length. The left renal echogenicity, contour, and cortical thickn ess are within normal limits. No hydronephrosis or large masses/calculi are seen. Aorta peak systolic velocity, 58 cm/s Right renal artery peak systolic velocity, 59 cm/s (< 180 cm/s = normal). Left renal artery peak systolic velocity 46 cm/s (< 180 cm/s = normal). Right RAR : 1.0 (< 3.5, normal) Left RAR 0.8 (< 3.5, normal) Right RI: 0.77 (< 0.75, normal) Left RI: 0.72 (< 0.75, normal) IMPRESSION: Limited examination secondary to patient body habitus and shadowing from overlying bowel gas. No findings to suggest renal artery stenosis. *Jose Daniel Roland Techniques in Noninvasive Vascular Diagnosis 2002
--- NOTE | 2024-12-21 13:26 | DVHSR ---
APPROVED REPORT EXAM: Two-dimensional and M-mode echocardiogram with Doppler and color Doppler. Blood Pressure: 124/50 mmHg INDICATION Hypertension RISK FACTORS Height: 62, Weight: 206 DIMENSIONS LVDd (3.8-5.7cm)LA (2D)4.4 (1.9-4.0cm)Aortic Root (2.0-3.7cm) EF (%) 62.0 (55-70%)Rt. Atrium4.0 (1.9-4.0cm)Asc. Aorta cm Mitral Valve MitralMitral Stenosis E wave1.27m/sMV Mean GR.mmHg A wave1.16m/sMV Peak GR.mmHg E/A ratio1.12D MVAcm2 DECEL [id number] 1/2 Dqeu46in IVRTmsDop MVA2.38cm2 Aortic Valve Aortic ValveAortic Stenosis V11.45m/Isha Mean GR.14mmHg V22.52m/Isha Peak GR.25mmHg Tricuspid Valve TR Velocity2.36m/s [id number] Other Information Technically limited study due to body habitus and patient position. Conclusion lvef 65% by visual estimate normal rv function no severe valve abnormaliteis noted left atrium enlarged catheter tip in right atrium mild aortic stenosis mean gradient of 15 mmhg
[2024-12-21] MEDS ORDERED: DEXTROSE (50%) 50ML SYRG IV PRN (18:30)
[2024-12-21] MEDS: SODIUM CHLORIDE 0.9% 1,000 ML IV SCH (18:44)
[2024-12-21] MEDS: ACCU-CHEK COMFORT CURVE STRIP VI SCH (21:18)
[2024-12-21] MEDS: InsuLIN REG 1unit/0.01ml Soln (100units/ml) SC SCH (21:28)
[2024-12-22] VITALS (10 sets, daily range): BP systolic 94–168; BP diastolic 51–77; PULSE 66–82; RESP 18–22; TEMP 98.1–98.6; O2SAT 94–98
[2024-12-22 06:13] LABS: Basophils # (auto) 0 10 ^3/uL (0-0.2); Basophils % (auto) 0.8 % (0.0-2.0); Eosinophils # (auto) 0.1 10 ^3/uL (0-0.8); Eosinophils % (auto) 1.6 % (0.0-7.0); Monocytes # (auto) 0.5 10 ^3/uL (0-1.3); Monocytes % (auto) 9.6 % (0.0-12.0)
[2024-12-22 06:17] LABS: Hematocrit 27.5 % (36.0-46.0); Hemoglobin 8.7 g/dL (12.2-16.2); Lymphocytes # (auto) 1.9 10 ^3/uL (0.4-5.4); Lymphocytes % (auto) 35.6 % (10.0-50.0); Mean Corpuscular Hgb Conc. 31.5 g/dL (32.0-36.0); Neutrophils # (auto) 2.8 10 ^3/uL (1.6-8.6); Neutrophils % (auto) 52.4 % (37.0-80.0); Nucleated Red Blood Cells % 0.1 %; Platelet Count (auto) 327 10^3/uL (140-450); Red Blood Cells 3.77 10^6/uL (4.0-5.20); Red Cell Distribution Width 16.6 % (11.8-14.3); White Blood Cell 5.4 10^3/uL (4.4-10.8)
[2024-12-22 06:28] LABS: Anion Gap 8 (5-15); Carbon Dioxide 26 mmol/L (20-31); Chloride 106 mmol/L (98-107); Sodium 140 mmol/L (136-145)
[2024-12-22 06:29] LABS: Calcium 9.4 mg/dL (8.7-10.4)
[2024-12-22 06:34] LABS: BUN/Creatinine Ratio 17.4 (10.0-20.0); Blood Urea Nitrogen 16 mg/dL (9-23); Glucose 93 mg/dL (74-106)
--- NOTE | 2024-12-22 11:25 | ECG ---
[facility] Test Date: 2024-12-21 Test Time: 15:41:02 Pat Name: CELIA ATKINS [facility] F Lead Generation Specialist: piper : 1955 Requested By: KEKE FORDE Order Number: [id number] Reading MD: Victor Manuel Cortez Measurements Intervals [place] Rate: 69 P: 4 RI: 198 QRS: -7 QRSD: 92 T: 27 QT: 383 QTc: 411 Interpretive Statements Sinus rhythm Baseline wander in lead(s) V6 Electronically Signed On 12-22-2024 11:55:06 PDT by Victor Manuel Cortez Please click the below link to view image of tracing.
[2024-12-22] MEDS ORDERED: hydrALAZINE HCL 20 MG/ML VL IV PRN (12:00)
--- NOTE | 2024-12-22 17:33 | DVHPNRES ---
Progress Note Date Seen: Dec 22, 2024 Resident Creating Document: LUPE MOSLEY RESIDENT Medical Necessity Reason Pt with a Central, PICC or Fol: No Subjective Review of Systems Patient was seen and examined on the bedside. she is alert, oriented x3. No overnight events, mentioned feeling better and no active complaint. Objective vital signs Vital Sign Date Time Temp Pulse Resp B/P (MAP) Pulse Ox O2 Delivery O2 Flow Rate FiO2 12/22/24 13:00 98.3 80 22 148/70 (96) 96 98.3 12/22/24 07:50 Room Air* 0 21 Total Intake and Output 12/21/24 12/21/24 12/22/24 14:59 22:59 06:59 Intake Total 720 ml 800 ml Balance 720 ml 800 ml medications Current Medications Medications Dose Ordered Sig/Paul Route Start Time Stop Time Status Last Admin Dose Admin Sodium Chloride 10 ml Q8HR IV 12/20/24 14:00 12/22/24 06:00 10 ML Acetaminophen/ Hydrocodone Bitart 1 tab Q4HP PRN PO 12/20/24 13:15 12/22/24 02:46 1 TAB Ondansetron HCl 4 mg Q4HP PRN IV 12/20/24 13:15 Docusate Sodium 100 mg BIDPRN PRN PO 12/20/24 13:15 Acetaminophen 650 mg Q6HP PRN PO 12/20/24 13:15 Nitroglycerin 0.4 mg Q5MINP PRN SL 12/20/24 13:15 Morphine Sulfate 2 mg Q30M PRN IV 12/20/24 13:15 Hydroxyzine Pamoate 25 mg HS PO 12/20/24 22:00 12/21/24 21:12 25 MG Lisinopril 10 mg DAILY PO 12/21/24 10:00 Pantoprazole Sodium 40 mg DAILY@0600 PO 12/21/24 06:00 12/22/24 05:07 40 MG Sodium Chloride 1,000 ml @ 60 mls/hr [id number] IV 12/21/24 18:30 12/21/24 18:44 60 MLS/HR Diagnostic Test (Pha) 1 strip ACHS 12/21/24 22:00 12/22/24 16:59 1 STRIP Insulin Human Regular ACHS SC 12/21/24 22:00 Dextrose 50 ml UD PRN IV 12/21/24 18:30 Examination Physical examination: General Appearance: Alert, Oriented X3, Cooperative, No acute distress HEENT: Atraumatic, PERRLA, EOMI, Mucous membrane moist/pink Respiratory: Clear to auscultation, Normal air movement Cardiovascular: Regular rate, Normal S1, Normal S2, No murmurs, no chest wall tenderness Abdominal: Normal bowel sounds, Soft, No tenderness, No hepatospenomegaly, No masses Extremities: No clubbing, No cyanosis, No edema, Normal pulses, No tenderness/swelling Skin: No rashes, No breakdown, No significant lesion Neuro: Normal speech, Strength at 5/5 X4 ext, Normal tone, Sensation intact, grossly intact cranial nerves. Psych/Mental Status: Mental status NL, Mood NL laboratory and microbiology Laboratory Tests 12/22/24 05:20 Test 12/22/24 05:20 Range/Units Serum Glucose 93 74-106 mg/dL Labs and/or images reviewed: Labs reviewed by me, Image(s) reviewed by me Problem List/Assessment/Plan Problem List/Assessment/Plan Assessment and plan: # Hypertensive urgency # Ruled out artery stenosis # Hypertensive heart disease with possible chronic diastolic heart failure - On admission blood pressure was 202/87 - IV hydralazine 10 mg q.6 p.r.n. - Lisinopril 10 mg p.o. daily - Arterial duplex was negative for renal artery stenosis - Echo revealed ejection fraction 65%, normal RV function and mild aortic stenosis. # GERD # Large hiatal hernia - Protonix 40 mg p.o. daily # Type 2 diabetes mellitus, hemoglobin A1c 6.1 - Mild sliding dose of insulin # DVT prophylaxis - Lovenox 40 mg sc daily Goal of care discussed with the patient for more than 20 minutes full code Plan discussed with Dr. Quiñones Plan discussed with: Patient, Other My Orders My Orders Orders - LUPE MOSLEY RESIDENT Procedure Category Date Status Time Sodium Chloride 0.9% PHA 12/21/24 In Process 18:30 Glucose Blood PHA 12/21/24 In Process (Accu-Chek Comfort 22:00 Insulin R (Human) PHA 12/21/24 In Process (Insulin R) 22:00 Dextrose 50% Syringe PHA 12/21/24 In Process 18:30 * Technical Advisor CONS 12/22/24 Transmitted Consult Date of Service: Dec 22, 2024 Billing Provider: LATA SANCHEZ MD Common Visit Codes: [id number] INP/OBS CARE(HIGH) LUPE MOSLEY RESIDENT Dec 22, 2024 17:33 LATA SANCHEZ MD Dec 27, 2024 23:42
[2024-12-23 01:00] VITALS: BP 148/48; PULSE 84; RESP 18; TEMP 98.2; O2SAT 96
[2024-12-23 05:00] VITALS: BP 140/50; PULSE 80; RESP 18; TEMP 98.1; O2SAT 98
[2024-12-23 08:00] VITALS: PULSE 67; PULSE 71; RESP 19; O2SAT 97
[2024-12-23 08:15] VITALS: BP 158/72; PULSE 71; RESP 19; TEMP 97.8; O2SAT 96
[2024-12-23 12:10] VITALS: BP_SYST 138; BP_SYST 139; BP_SYST 145; BP_DIAS 63; BP_DIAS 65; BP_DIAS 67; PULSE 73; PULSE 75; PULSE 77; RESP 19; TEMP 98.2; O2SAT 98
[2024-12-23] MEDS ORDERED: LISINOPRIL 5 MG TAB PO ONE (12:15)
[2024-12-23 16:20] VITALS: BP 127/71; PULSE 82; RESP 18; TEMP 98.2; O2SAT 97
[2024-12-23] MEDS ORDERED: LISI10TA34 PO (16:22)
--- NOTE | 2024-12-23 16:26 | DVHDS2 ---
Discharge Summary Date of Admission Dec 20, 2024 at 13:07 Date of Discharge: Dec 23, 2024 Labs/Diagnostic Data: Laboratory Results Test 12/23/24 11:36 12/22/24 05:20 12/21/24 05:05 12/20/24 07:18 POC Glucose 117 mg/dl (70-106) White Blood Count 5.4 10^3/uL (4.4-10.8) Red Blood Count 3.77 10^6/uL (4.0-5.20) Hemoglobin 8.7 g/dL (12.2-16.2) Hematocrit 27.5 % (36.0-46.0) Mean Corpuscular Volume 73.0 fL (80.0-100.0) Mean Corpuscular Hemoglobin 23.0 pg (28.0-32.0) Mean Corpuscular Hemoglobin Concent 31.5 g/dL (32.0-36.0) Red Cell Distribution Width 16.6 % (11.8-14.3) Platelet Count 327 10^3/uL (140-450) Mean Platelet Volume 8.5 fL (6.9-10.8) Neutrophils (%) (Auto) 52.4 % (37.0-80.0) Lymphocytes (%) (Auto) 35.6 % (10.0-50.0) Monocytes (%) (Auto) 9.6 % (0.0-12.0) Eosinophils (%) (Auto) 1.6 % (0.0-7.0) Basophils (%) (Auto) 0.8 % (0.0-2.0) Neutrophils # (Auto) 2.8 10 ^3/uL (1.6-8.6) Lymphocytes # (Auto) 1.9 10 ^3/uL (0.4-5.4) Monocytes # (Auto) 0.5 10 ^3/uL (0-1.3) Eosinophils # (Auto) 0.1 10 ^3/uL (0-0.8) Basophils # (Auto) 0 10 ^3/uL (0-0.2) Nucleated Red Blood Cells 0.1 % Sodium Level 140 mmol/L (136-145) Potassium Level 4.0 mmol/L (3.5-5.1) Chloride Level 106 mmol/L (98-107) Carbon Dioxide Level 26 mmol/L (20-31) Anion Gap 8 (5-15) Blood Urea Nitrogen 16 mg/dL (9-23) Creatinine 0.92 mg/dL (0.550-1.02) Glomerular Filtration Rate Calc 67 mL/min (>90) BUN/Creatinine Ratio 17.4 (10.0-20.0) Serum Glucose 93 mg/dL (74-106) Calcium Level 9.4 mg/dL (8.7-10.4) Total Bilirubin 0.4 mg/dL (0.2-1.0) Aspartate Amino Transferase (AST) 20 U/L (13-40) Alanine Aminotransferase (ALT) 20 U/L (7-40) Alkaline Phosphatase 54 U/L (46-116) Total Protein 6.3 g/dL (5.7-8.2) Albumin 3.8 g/dL (3.2-4.8) Urine Color Light-yellow (Yellow) Urine Clarity Clear (Clear) Urine pH 5.0 (5.0-9.0) Urine Specific [place] 1.016 (1.001-1.035) Urine Protein Negative (Negative) Urine Ketones Negative (Negative) Urine Blood Negative /uL (Negative) Urine Nitrite Negative (Negative) Urine Bilirubin Negative (Negative) Urine Urobilinogen Normal mg/dL (Negative) Urine Leukocyte Esterase Negative /uL (Negative) Urine RBC <1 /hpf (0 - 4) Urine Microscopic WBC 1 /HPF (0-5) Urine Squamous Epithelial Cells Few /hpf (<5) Urine Bacteria Few /hpf (None Seen) Urine Mucus Few (None Seen) Urine Glucose Normal mg/dL (Normal) Test 12/20/24 06:55 12/20/24 05:37 Troponin I High Sensitivity 5 ng/L (</=34) Hemoglobin A1c 6.1 % A1C (<5.7) Magnesium Level 2.0 mg/dL (1.6-2.6) Triglycerides Level 90 mg/dL (< 150) Cholesterol Level 187 mg/dL (< 200) LDL Cholesterol 117 mg/dL (< 100) HDL Cholesterol 61 mg/dL (40-59) Thyroid Stimulating Hormone (TSH) 3.31 uIU/mL (0.55-4.78) Other Laboratory Tests 12/22/24 05:20 Brief Hx & Hospital Course: HPI: 69-year-old female with past medical history of hypertension, GERD, diabetes, anxiety, and insomnia, who came in for chest pain, nausea, and vomiting. Patient states that her blood pressure became elevated last night and that she vomited last night. She states that her blood pressure remained elevated this morning. She came to the ER for the elevated blood pressure, and chest pain. While in the ER she did have an episode of nausea and vomiting. Patient states that she has recently seen a new physician and her medications were changed. Summary: Patient presented with chest pain nausea and vomiting and in ED noted to have high blood pressure up to 202/87, requiring IV hydralazine and continued home PO antihypertensive lisinopril. Cardio was consulted by admitting team for blood pressure control and renal artery duplex showing no stenosis of renal artery and echo with EF 65% otherwise normal function with some mild aortic stenosis. Patient given IV hydralazine with results in hypotension which was then held. Only continued on p.o. antihypertensive lisinopril which require increase up to 20 mg thereafter. Pressure is stable. On 12/23 vital signs stable, patient ambulating, tolerating p.o., bowel function intact and patient stable for discharge as per plan below Diagnosis: # Hypertensive urgency # Ruled out renal artery stenosis # Hypertensive heart disease, chronic diastolic heart failure likely # GERD # Large hiatal hernia # Type 2 diabetes mellitus, hemoglobin A1c 6.1 Discharge plan: - increase lisinopril to 20 mg daily -Continue low-salt diet/ low carb diet -Follow up with PCP to review discharge -Continue home meds Condition at Discharge: Fair Final Diagnosis/Problems List # Hypertensive urgency # Ruled out renal artery stenosis # Hypertensive heart disease, chronic diastolic heart failure likely # GERD # Large hiatal hernia # Type 2 diabetes mellitus, hemoglobin A1c 6.1 Discharge Disposition: Home Discharge Instruct/Medications Diet: Consistent carbohydrate, Cardiac 2g Na,low cholest Activity: No Restrictions, As Tolerated Follow Up/Referral: pcp Medications: below Discharge Statement: "Patient was advised to return to the ER or call 911 if any headaches, dizziness, shortness of breath, chest pain, abdominal pain, bleeding, fevers, or worsening of medical condition. Patient was counseled about treatment plan, medications, possible side effects, patientverbalized understanding. All questions were answered to the best of my ability. This discharge took greater then 30 minutes in planning, reviewing documentation, counseling the patient, and discussing with other team members." Date of Service: Dec 23, 2024 Billing Provider: LATA SANCHEZ MD Common Visit Codes: 80612-RZY/OBS DISCH DAY >30min LATA SANCHEZ MD Dec 23, 2024 16:26
[2024-12-24] MEDS ORDERED: LISINOPRIL 20 MG TAB PO SCH (10:00)
== END 2024-12-23 18:28 | disposition home or self-care (01) | DRG 305 ==
LOC: ER 00:12 → OVERFLOW 13:07 → TELE-WESTW 21:32
PROVIDERS: ADMIT Student in an Organized Health Care Education/Training Program; ATTEND Student in an Organized Health Care Education/Training Program
DX: I16.0 Hypertensive urgency (principal); I50.32 Chronic diastolic (congestive) heart failure; E11.9 Type 2 diabetes mellitus without complications; F41.9 Anxiety disorder, unspecified; I11.0 Hypertensive heart disease with heart failure; K21.9 Gastro-esophageal reflux disease without esophagitis; K44.9 Diaphragmatic hernia without obstruction or gangrene; E66.9 Obesity, unspecified; Z68.36 Body mass index [BMI] 36.0-36.9, adult; J84.10 Pulmonary fibrosis, unspecified; G47.09 Other insomnia; E78.5 Hyperlipidemia, unspecified; Z79.4 Long term (current) use of insulin; Z79.84 Long term (current) use of oral hypoglycemic drugs; Z87.891 Personal history of nicotine dependence; Z79.899 Other long term (current) drug therapy; Z90.49 Acquired absence of other specified parts of digestive tract
CPT/HCPCS: 36415; 71045; 80048; 80053; 80061; 81001; 82962; 83036; 83735; 84443; 84484; 85025; 93005; 93306; 93976; 96361; 96374; 96375; G0378; J2405; J3490